=== PATIENT | male | born 1935 | race Caucasian/White ===

== ENCOUNTER 2018-08-26 18:36 | Emergency (ER) | payer MEDICARE, MEDICAID ==
[~2018-08-26] VITALS: Ht 193 cm; Wt 90.0 kg
[~2018-08-26 18:36] MED LIST: ALBU18HF2 IH; AMLO5TAB4 PO; ATOR20TA65 PO; BUDE6HFA INH; ESOM40CA53 PO; HYDR12.54 PO; IPRA3AMP9 HHN; LEVO500T2 PO; LOSA100T14 PO; MECL-109 PO; MONT10TA21 PO; MULT-1146 PO; P20 PO; POTA20TA12 PO; PRED-543 PO; PRED10TA PO; RANI150T7 PO; REV20 PO; TAMS0.4C31 PO
[2018-08-26] MEDS ORDERED: MAGNESIUM/ALUMINUM HYDROXIDE/SIMETHICONE 30ML UDC PO STA (18:56)
[2018-08-26] MEDS ORDERED: SODIUM CHLORIDE 0.9% 1,000 ML IV ONE (18:56)
[2018-08-26] MEDS ORDERED: LOPERAMIDE 2 MG/10 ML UDC PO ONE (19:00)
[2018-08-26 20:29] LABS: BASOPHILS % 0.7 % (0.0-2.0); HEMATOCRIT. 34.4 % (42.0-52.0); HEMOGLOBIN. 11.5 g/dL (14.0-18.0); LYMPHOCYTES % 16.4 % (20.0-50.0); MEAN CORPUSCULAR HEMOGLOBIN 28.4 pg (28.0-32.0); MEAN CORPUSCULAR VOLUME 85.2 fL (80.0-94.0); MEAN PLATELET VOLUME 8.2 fl (7.4-10.4); MONOCYTES % 10.2 % (2.0-8.0); NEUTROPHILS % 71.7 % (40.0-76.0); PLATELET 116 x1000/uL (130-400); RED BLOOD CELL COUNT 4.04 mill/uL (4.7-6.1); RED CELL DISTRIBUTION WIDTH 15.1 % (11.6-14.6)
[2018-08-26 20:31] LABS: CHLORIDE 110 mEq/L (98-107)
[2018-08-26 22:09] VITALS: BP 152/72
== END 2018-08-26 22:18 | disposition home or self-care (01) ==
LOC: ER 18:36
DX: R19.7 Diarrhea, unspecified (principal); J44.9 Chronic obstructive pulmonary disease, unspecified; E11.9 Type 2 diabetes mellitus without complications; I11.0 Hypertensive heart disease with heart failure; I50.9 Heart failure, unspecified; Z87.01 Personal history of pneumonia (recurrent); Z98.42 Cataract extraction status, left eye; Z87.891 Personal history of nicotine dependence; Z79.899 Other long term (current) drug therapy
CPT/HCPCS: 36415; 80053; 85025; 96360; 99283; J7030; Z7610